=== PATIENT | male | born 1975 | race Two or more races ===

== ENCOUNTER 2016-07-26 20:18 | Emergency (ER) | payer OTHER ==
[2016-07-26] MEDS ORDERED: LACTATED RINGERS 1,000 ML ONE (21:03)
[2016-07-26 21:09] LABS: ABSOLUTE NEUTROPHIL COUNT 3.3 K/mm3 (1.8-7.7); BASO % 0.7 % (0.2-1.0); EOS % 0.2 % (0.9-2.9); HEMATOCRIT 44.2 % (32.0-52.0); HEMOGLOBIN 15.5 gm/l (14.0-18.0); IMM NEUT% 0.3 % (0-1); LYMPH # 1.3 (1.0-4.8); LYMPH % 22.2 % (15-45); MEAN CELL VOLUME 86.2 fl (80.0-94.0); MEAN CORPUSCULAR HEMOGLOBIN 30.2 pg (27.0-31.0); MEAN CORPUSCULAR HGB CONC 35.1 g/dl (33.0-37.0); MEAN PLATELET VOLUME 10.6 fl (7.4-10.4); MONO # 1.1 (0.0-0.8); MONO % 19.7 % (4-12); NEUT % 56.9 % (43-75); PLATELET COUNT 192 K/mm3 (130-400); RED CELL DISTRIBUTION WIDTH 11.8 % (11.5-14.5)
[2016-07-26 21:18] LABS: ALB/GLOB RATIO 1.4 (>1.0); CALCIUM 9.2 mg/dL (8.6-10.3)
--- NOTE | 2016-07-27 07:53 | RAD ---
History: Body aches with cough and chills. Comparison: None. Technique: 2 views Findings: The soft tissue and bony structures are appropriate. The heart size is within expected. There is questionable subtle airspace density seen within the right upper lobe. No effusion is seen. The hilar and mediastinal structures are intact. Impression: 1. A questionable subtle right upper lobe infiltrate.
== END 2016-07-26 22:17 | disposition home or self-care (01) ==
LOC: ED 20:18
DX: J11.1 Influenza due to unidentified influenza virus with other respiratory manifestations (principal); I10 Essential (primary) hypertension; E11.9 Type 2 diabetes mellitus without complications; Z79.84 Long term (current) use of oral hypoglycemic drugs